=== PATIENT | female | born 1950 | race African-American/Black ===

== ENCOUNTER 2018-03-01 18:00 | Emergency (ER) | payer OTHER ==
[~2018-03-01] VITALS: Ht 152.4 cm; Wt 43.0 kg
[2018-03-01 19:37] LABS: CLARITY URINE CLEAR (CLEAR); COLOR URINE YELLOW (YELLOW); KETONES URINE NEGATIVE (NEGATIVE); LEUKOCYTE ESTERASE URINE NEGATIVE (NEGATIVE); NITRITE URINE NEGATIVE (NEGATIVE); OCCULT BLOOD URINE TRACE (NEGATIVE); PH URINE 6.5 (4.5-8.0); PROTEIN URINE NEGATIVE (NEGATIVE); SPECIFIC GRAVITY URINE 1.012 (1.005-1.030); UROBILINOGEN URINE 0.2 E.U./dL (0.2-1.0)
[2018-03-01 19:37] LABS: BASOPHILS % 0.6 % (0.0-2.0); CHLORIDE 111 mEq/L (98-107); EOSINOPHILS % 1.4 % (0.0-5.0); HEMATOCRIT. 40.8 % (36.0-48.0); HEMOGLOBIN. 13.2 g/dL (12.0-16.0); LYMPHOCYTES % 25.8 % (20.0-50.0); MEAN CORPUSCULAR VOLUME 80.2 fL (81.0-99.0); MEAN PLATELET VOLUME 8.1 fl (7.4-10.4); MONOCYTES % 10.2 % (2.0-8.0); PLATELET 270 x1000/uL (130-400); RED BLOOD CELL COUNT 5.08 mill/uL (4.2-5.4); RED CELL DISTRIBUTION WIDTH 15.2 % (11.6-14.6)
[2018-03-01 19:38] LABS: PARTIAL THROMBOPLASTIN TIME 29.9 sec (23.4-31.0); PROTHROMBIN TIME 10.9 sec (9.4-11.6)
[2018-03-01 19:42] LABS: ETHANOL BLOOD < 10 mg/dL
[2018-03-01 19:44] LABS: LDL CHOLESTEROL 83 mg/dL (5-100)
[2018-03-01] MEDS ORDERED: ASPIRIN 325MG EC TABLET PO ONE (19:45)
[2018-03-01 19:46] LABS: CREATINE KINASE 71 IU/L (26-192)
[2018-03-01 20:14] LABS: *AMPHETAMINES SCREEN URINE NEGATIVE (NEGATIVE); *BARBITURATES SCREEN URINE NEGATIVE (NEGATIVE); *BENZODIAZEPINES SCREEN URINE NEGATIVE (NEGATIVE); *COCAINE SCREEN URINE PRESUMTIVE POSITIVE (NEGATIVE)
[2018-03-01 20:15] LABS: CANNABINOID URINE SCREEN NEGATIVE (NEGATIVE); METHADONE URINE SCREEN NEGATIVE (NEGATIVE); OPIATES URINE SCREEN NEGATIVE (NEGATIVE); PHENCYCLIDINE URINE SCREEN NEGATIVE (NEGATIVE)
[2018-03-01 23:48] VITALS: BP 165/100
== END 2018-03-01 23:59 | disposition short-term general hospital (02) ==
LOC: ER 18:11 → CANBEDREQ 03-02 03:41
DX: I63.9 Cerebral infarction, unspecified (principal); F17.200 Nicotine dependence, unspecified, uncomplicated; E46 Unspecified protein-calorie malnutrition; R91.8 Other nonspecific abnormal finding of lung field; I12.9 Hypertensive chronic kidney disease with stage 1 through stage 4 chronic kidney disease, or unspecified chronic kidney disease; N18.9 Chronic kidney disease, unspecified; Z79.82 Long term (current) use of aspirin
CPT/HCPCS: 36415; 70450; 71045; 80053; 80305; 81003; 82550; 83690; 83721; 83880; 84484; 85025; 85610; 85730; 93005; 99285; G0482

== ENCOUNTER 2021-04-10 18:02 | Emergency (ER) | payer OTHER, MEDICARE ==
[~2021-04-10] VITALS: Ht 157.5 cm; Wt 55.0 kg
[2021-04-10] MEDS ORDERED: INDOMETHACIN (18:06)
[2021-04-10] MEDS ORDERED: AMLODIPINE (18:06)
[2021-04-10] MEDS ORDERED: PLAVIX (18:06)
[2021-04-10] MEDS ORDERED: OXYB5TAB17 PO (18:06)
[2021-04-10] MEDS ORDERED: MAXZIDE (18:06)
[2021-04-10] MEDS ORDERED: ONDANSETRON HCL 4MG/2ML INJ IV STA (18:26)
[2021-04-10] MEDS ORDERED: MORPHINE SULFATE 4 MG/ML CPJ (NOT FOR IM USE) IV STA (18:26)
[2021-04-10] MEDS ORDERED: PANTOPRAZOLE SODIUM 40 MG/VIAL IV ONE (18:30)
[2021-04-10] MEDS ORDERED: SODIUM CHLORIDE 0.9% 1,000 ML IV ONE (18:30)
[2021-04-10 18:53] LABS: BASOPHILS % 0.2 % (0.0-2.0); HEMATOCRIT. 45.4 % (36.0-48.0); HEMOGLOBIN. 14.4 g/dL (12.0-16.0); LYMPHOCYTES % 14.7 % (20.0-50.0); MEAN CORPUSCULAR HEMOGLOBIN 26.2 pg (28.0-32.0); MEAN CORPUSCULAR VOLUME 82.1 fL (81.0-99.0); MONOCYTES % 8.8 % (2.0-8.0); NEUTROPHILS % 75.3 % (40.0-76.0); PLATELET 233 x1000/uL (130-400); RED BLOOD CELL COUNT 5.52 mill/uL (4.2-5.4); RED CELL DISTRIBUTION WIDTH 15.4 % (11.6-14.6)
[2021-04-10 19:00] LABS: CHLORIDE 110 mEq/L (98-107)
[2021-04-10 19:07] LABS: INR 1.1; PARTIAL THROMBOPLASTIN TIME 26.7 sec (23.4-31.0); PROTHROMBIN TIME 11.4 sec (9.6-11.0)
[2021-04-10] MEDS ORDERED: HYDRALAZINE 20MG/ML VIAL IV ONE (21:00)
[2021-04-10] MEDS ORDERED: ONDANSETRON HCL 4MG/2ML INJ IV ONE (21:00)
[2021-04-10 22:03] LABS: CLARITY URINE CLEAR (CLEAR); COLOR URINE YELLOW (YELLOW); KETONES URINE NEGATIVE (NEGATIVE); LEUKOCYTE ESTERASE URINE NEGATIVE (NEGATIVE); NITRITE URINE NEGATIVE (NEGATIVE); OCCULT BLOOD URINE TRACE (NEGATIVE); PH URINE 6.5 (4.5-8.0); PROTEIN URINE 2+ (NEGATIVE); SPECIFIC GRAVITY URINE 1.012 (1.005-1.030); UROBILINOGEN URINE 0.2 E.U./dL (0.2-1.0)
[2021-04-11] MEDS ORDERED: CLONIDINE 0.1MG TABLET PO PRN (05:30)
[2021-04-11] MEDS ORDERED: LACTULOSE 20G/30ML UDC PO NR (11:30)
[2021-04-11] MEDS ORDERED: DEXT 5%/0.45% NACL 1000ML 1,000 ML IV SCH (11:30)
[2021-04-11] MEDS ORDERED: PANTOPRAZOLE SODIUM 40 MG/VIAL IV SCH (12:00)
[2021-04-11 14:16] LABS: BASOPHILS % 0.5 % (0.0-2.0); EOSINOPHILS % 0.7 % (0.0-5.0); HEMATOCRIT. 48.4 % (36.0-48.0); HEMOGLOBIN. 15.5 g/dL (12.0-16.0); LYMPHOCYTES % 21.5 % (20.0-50.0); MEAN CORPUSCULAR HEMOGLOBIN 26.3 pg (28.0-32.0); MEAN CORPUSCULAR VOLUME 81.9 fL (81.0-99.0); MEAN PLATELET VOLUME 7.6 fl (7.4-10.4); MONOCYTES % 9.5 % (2.0-8.0); NEUTROPHILS % 67.8 % (40.0-76.0); PLATELET 215 x1000/uL (130-400); RED CELL DISTRIBUTION WIDTH 15.4 % (11.6-14.6)
[2021-04-11 14:17] LABS: CHLORIDE 108 mEq/L (98-107)
[2021-04-11 14:25] LABS: TOTAL IRON BINDING CAPACITY 425 ug/dL (250-450)
[2021-04-11 14:42] LABS: FERRITIN 38 ng/mL (10-291)
[2021-04-11 14:46] LABS: VITAMIN B12 SERUM 650 pg/mL (211-911)
[2021-04-11 15:30] VITALS: BP 167/94
[2021-04-11] MEDS: HYDRALAZINE 20MG/ML VIAL IV PRN ×2 (16:24→17:02)
[2021-04-11] MEDS ORDERED: AMLODIPINE 5MG TABLET PO SCH (17:00)
== END 2021-04-11 18:40 | disposition home or self-care (01) ==
LOC: ER 18:02 → EDBEDREQ 22:22 → SUPCPDRO 04-11 10:23 → ENRESERV 04-11 16:21 → CANRESERV 04-11 16:21 → CANBEDREQ 04-11 18:15 → ER 04-11 18:40
DX: K92.2 Gastrointestinal hemorrhage, unspecified (principal); E86.0 Dehydration; I12.9 Hypertensive chronic kidney disease with stage 1 through stage 4 chronic kidney disease, or unspecified chronic kidney disease; N18.9 Chronic kidney disease, unspecified; I25.10 Atherosclerotic heart disease of native coronary artery without angina pectoris; M48.061 Spinal stenosis, lumbar region without neurogenic claudication; K56.41 Fecal impaction; F14.10 Cocaine abuse, uncomplicated; Z86.73 Personal history of transient ischemic attack (TIA), and cerebral infarction without residual deficits; Z79.899 Other long term (current) drug therapy
CPT/HCPCS: 36415; 71045; 74176; 80053; 81003; 82270; 82607; 82728; 83540; 83550; 83690; 83880; 84484; 85025; 85610; 85730; 86850; 86900; 86901; 87086; 93005; 96361; 96374; 96375; 96376; 99285; C9113; J0360; J2270; J2405; J7030

== ENCOUNTER 2022-04-09 07:12 | Emergency (ER) | payer OTHER, MEDICARE ==
[~2022-04-09] VITALS: Ht 152.4 cm; Wt 52.0 kg
[~2022-04-09 07:12] MED LIST: AMLODIPINE; INDOMETHACIN; MAXZIDE; OXYB5TAB17 PO; PLAVIX
[2022-04-09 07:51] VITALS: BP 121/78
[2022-04-09] MEDS ORDERED: PREDNISONE 20MG TABLET PO ONE (09:15)
[2022-04-09] MEDS ORDERED: DIPHENHYDRAMINE 50MG CAPSULE PO ONE (09:15)
[2022-04-09] MEDS ORDERED: FAMOTIDINE 20MG TABLET PO ONE (09:15)
== END 2022-04-09 11:00 | disposition left against medical advice (07) ==
LOC: ER 07:12
DX: R22.0 Localized swelling, mass and lump, head (principal); I10 Essential (primary) hypertension; Z86.73 Personal history of transient ischemic attack (TIA), and cerebral infarction without residual deficits; Z98.890 Other specified postprocedural states
CPT/HCPCS: 99283

== ENCOUNTER 2022-11-17 19:01 | Inpatient (IN) | payer OTHER, MEDICARE ==
[~2022-11-17] VITALS: Ht 152.4 cm; Wt 49.1 kg
[2022-11-17 23:20] LABS: BASOPHILS % 0.7 % (0.0-2.0); EOSINOPHILS % 0.2 % (0.0-5.0); HEMATOCRIT. 43.2 % (36.0-48.0); HEMOGLOBIN. 14.2 g/dL (12.0-16.0); LYMPHOCYTES % 12.8 % (20.0-50.0); MEAN CORPUSCULAR HEMOGLOBIN 26.8 pg (28.0-32.0); MEAN CORPUSCULAR VOLUME 81.4 fL (81.0-99.0); MEAN PLATELET VOLUME 8.4 fl (7.4-10.4); MONOCYTES % 4.7 % (2.0-8.0); NEUTROPHILS % 81.6 % (40.0-76.0); PLATELET 221 x1000/uL (130-400); RED BLOOD CELL COUNT 5.31 mill/uL (4.2-5.4); RED CELL DISTRIBUTION WIDTH 16.4 % (11.6-14.6)
[2022-11-17 23:38] LABS: CHLORIDE 108 mEq/L (98-107)
[2022-11-18 07:30] LABS: CLARITY URINE CLEAR (CLEAR); COLOR URINE YELLOW (YELLOW); KETONES URINE NEGATIVE (NEGATIVE); LEUKOCYTE ESTERASE URINE 1+ (NEGATIVE); NITRITE URINE NEGATIVE (NEGATIVE); OCCULT BLOOD URINE NEGATIVE (NEGATIVE); PH URINE 6.5 (4.5-8.0); PROTEIN URINE 1+ (NEGATIVE); SPECIFIC GRAVITY URINE 1.011 (1.005-1.030); UROBILINOGEN URINE 0.2 E.U./dL (0.2-1.0)
[2022-11-18] MEDS ORDERED: ACETAMINOPHEN 325MG TABLET PO PRN (09:00)
[2022-11-18] MEDS ORDERED: ONDANSETRON HCL 4MG/2ML INJ IV PRN (09:00)
[2022-11-18] MEDS: AMLODIPINE 10MG TABLET PO SCH (12:00)
[2022-11-18 15:10] VITALS: BP 120/77
[2022-11-18] MEDS ORDERED: CLON-457 PO (16:03)
[2022-11-18] MEDS ORDERED: AMLO10TA80 PO (16:03)
[2022-11-18] MEDS ORDERED: LISI10TA26 PO (16:03)
[2022-11-18 20:00] VITALS: BP_SYST 147; BP_SYST 148; BP_SYST 150; BP_SYST 178; BP_DIAS 76; BP_DIAS 90; BP_DIAS 95; BP_DIAS 98
[2022-11-19] VITALS (7 sets, daily range): BP systolic 122–178; BP diastolic 56–98
[2022-11-19] MEDS ORDERED: CLONIDINE 0.1MG TABLET PO PRN (04:00)
[2022-11-19 07:10] LABS: BASOPHILS % 0.3 % (0.0-2.0); EOSINOPHILS % 2.2 % (0.0-5.0); HEMATOCRIT. 37.1 % (36.0-48.0); HEMOGLOBIN. 12.1 g/dL (12.0-16.0); LYMPHOCYTES % 30.8 % (20.0-50.0); MEAN CORPUSCULAR HEMOGLOBIN 26.6 pg (28.0-32.0); MEAN CORPUSCULAR VOLUME 81.3 fL (81.0-99.0); MEAN PLATELET VOLUME 8.2 fl (7.4-10.4); MONOCYTES % 9.3 % (2.0-8.0); NEUTROPHILS % 57.4 % (40.0-76.0); PLATELET 174 x1000/uL (130-400); RED BLOOD CELL COUNT 4.56 mill/uL (4.2-5.4); RED CELL DISTRIBUTION WIDTH 15.8 % (11.6-14.6)
[2022-11-19] MEDS: AMLODIPINE 10MG TABLET PO SCH (08:45)
[2022-11-19 15:34] LABS: *AMPHETAMINES SCREEN URINE NEGATIVE (NEGATIVE); *BARBITURATES SCREEN URINE NEGATIVE (NEGATIVE); *BENZODIAZEPINES SCREEN URINE NEGATIVE (NEGATIVE); *COCAINE SCREEN URINE PRESUMTIVE POSITIVE (NEGATIVE); CANNABINOID URINE SCREEN NEGATIVE (NEGATIVE); METHADONE URINE SCREEN NEGATIVE (NEGATIVE); OPIATES URINE SCREEN NEGATIVE (NEGATIVE); PHENCYCLIDINE URINE SCREEN NEGATIVE (NEGATIVE)
== END 2022-11-19 22:05 | disposition home or self-care (01) | DRG 73 ==
LOC: ER 19:01 → MICUSO 11-18 00:33 → 7WST 11-18 13:09
PROVIDERS: ADMIT Internal Medicine; ATTEND Internal Medicine
DX: G90.8 Other disorders of autonomic nervous system (principal); N17.0 Acute kidney failure with tubular necrosis; E78.5 Hyperlipidemia, unspecified; N18.9 Chronic kidney disease, unspecified; E87.8 Other disorders of electrolyte and fluid balance, not elsewhere classified; Z20.822 Contact with and (suspected) exposure to COVID-19; I12.9 Hypertensive chronic kidney disease with stage 1 through stage 4 chronic kidney disease, or unspecified chronic kidney disease; F14.10 Cocaine abuse, uncomplicated; Z86.73 Personal history of transient ischemic attack (TIA), and cerebral infarction without residual deficits
CPT/HCPCS: 36415; 71045; 76770; 80048; 80053; 80305; 81003; 83880; 84484; 85025; 87426; 93005; 93880; 97162; 99285